=== PATIENT | male | born 1965 | race Caucasian/White ===

== ENCOUNTER → 2016-12-22 | Outpatient (CLI) | payer OTHER ==
[~2016-12-22] MED LIST: ASPIRIN 81M81 MG/TA2 PO; DESYREL 100MG100 MG PO; FISH OIL1000 MG PO; HCTZ 25MG TAB25 MG PO; JANUVIA 100MG100 MG PO; LOPID 600M600 MG/TAB PO; MULTIVITAMIN1 CTB PO; NEXIUM 20MG20 MG PO; REQUIP 0.5MG0.5 MG PO; ZOCOR 40MG40 MG PO
== END ==
LOC: SUN.DIA 12-18 13:59
DX: E11.65 Type 2 diabetes mellitus with hyperglycemia (principal); Z79.4 Long term (current) use of insulin; E66.9 Obesity, unspecified; Z68.37 Body mass index [BMI] 37.0-37.9, adult; Z71.3 Dietary counseling and surveillance; E78.5 Hyperlipidemia, unspecified; I10 Essential (primary) hypertension

== ENCOUNTER → 2017-03-24 | Outpatient (CLI) | payer OTHER | LOC: SUN.DIA 15:15 | DX: E11.65 Type 2 diabetes mellitus with hyperglycemia (principal); E66.9 Obesity, unspecified; Z68.37 Body mass index [BMI] 37.0-37.9, adult; Z79.4 Long term (current) use of insulin; Z71.3 Dietary counseling and surveillance; E78.5 Hyperlipidemia, unspecified; I10 Essential (primary) hypertension; Z87.891 Personal history of nicotine dependence | CPT/HCPCS: G0108 ==

== ENCOUNTER → 2019-01-25 | Outpatient (CLI) | payer OTHER | LOC: COL.RAD 07:49 | DX: K75.81 Nonalcoholic steatohepatitis (NASH) (principal); K21.9 Gastro-esophageal reflux disease without esophagitis | CPT/HCPCS: A9541 ==